=== PATIENT | male | born 1945 | race Caucasian/White ===

== ENCOUNTER 2022-12-17 07:41 | Outpatient (CLI) | payer MEDICARE, BC, SELFPAY ==
[2022-12-17 07:56] VITALS: BP 125/84; PULSE 59; RESP 20; TEMP 36.6; O2SAT 98
[2022-12-17 08:36] VITALS: PULSE 55; O2SAT 96
[2022-12-17] MEDS: Lidocaine 2% Pres-Free 5 ML VIAL IJ (08:43)
[2022-12-17] MEDS: methylPREDNISolone ACETATE 40 MG/ML VIAL IJ (08:44)
--- NOTE | 2022-12-17 08:51 | PDOC.PAIN_ITS ---
Date of service: 12/17/22 Time of Service: 08:51 US Guided Injections Type of Ultrasound Guided Injection: Lower back Right Other (Gluteus Medius muscle) muscle Trigger Point Injection Pre-Procedural Evaluation No skin abnormalities at the site of the injection Referral Patient has been referred to the [facility] for Trigger Point Injection for a chief complaint of Right upper buttock pain Pre-Procedural Pain Score Pre-procedural pain score: 6/10 Reason for Exam Right upper buttock pain Patient Interview Patient was interviewed and medical record reviewed: Yes There were no contraindications to performing an US guided procedure. Risks,expected side effects, potential benefits were reviewed. The patient consent form was signed and witnessed. Standard time out procedure was performed. Patient Safety No skin abnormalities at the site of injection Procedure Description No sedation given for procedure Patient was placed in the left lateral recumbent position and the following Pulse Ox applied. Pre-Procedure ultrasound scanning performed using a Linear 18 MHz probe Site Preparation Chloroprep Local Anesthesia of Lidocaine 2%. A 21 G 3.5 Pajunk ultrasound needle was placed under live US guidance using an in-plane approach to the target area. After visualization of the needle tip at the target area Depo-Medrol 40mg per cc (40 mg) were used. Negative aspiration for blood. [place] were removed without difficulty. Ultrasound images were captured and stored. Patient Mental Status Patient was alert and awake during procedure Vital Signs Vital signs were stable throughout the procedure and recorded by nursing. Follow Up/Discharge Follow up plans and appointments were discussed with patient. Post procedure instruction was given as documented in nursing documentation. Discharge criteria met and patient discharged from [facility]: Yes Post Procedure Pain Post Procedure Pain: 0/10 Patient tolerated procedure well Procedure Outcome: Successful Comments: he will follow up with his provider in [place] - he heads down there in about one week Trigger Point Injection 1-2 muscles Non US Guided Injections Procedure Description Patient was placed in the left lateral recumbent position Post Procedure Pain Post Procedure Pain: 0/10
== END 2022-12-17 07:42 | disposition home or self-care (01) ==
LOC: PC 07:45
PROVIDERS: PCP Dermatology; Visit Provider Preventive Medicine Occupational Medicine
DX: M54.50 Low back pain, unspecified (principal); M79.18 Myalgia, other site
CPT/HCPCS: 00123; 20552; 20553; 20611; 76942; J1030